=== PATIENT | male | born 1970 | race African-American/Black ===

== ENCOUNTER 2023-11-26 07:38 | Day surgery (SDC) | payer BC ==
[2023-11-21 17:50] VITALS: BMI 22.4
[2023-11-26] MEDS ORDERED: PROPOFOL 80 ML ONE (08:49)
[2023-11-26 09:49] VITALS: PULSE 66; TEMP 97.5
[2023-11-26 09:56] VITALS: BP 103/50; RESP 16
== END 2023-11-26 09:45 | disposition home or self-care (01) ==
LOC: FASU-ENDO 07:38
PROVIDERS: ATTEND Internal Medicine Gastroenterology
PROC: 0DJD8ZZ Inspection of Lower Intestinal Tract, Via Natural or Artificial Opening Endoscopic (ICD-10-PCS; principal; 2023-11-26 08:56)
DX: Z12.11 Encounter for screening for malignant neoplasm of colon (principal)

== ENCOUNTER 2025-01-29 20:13 | Emergency (ER) | payer BC ==
[2025-01-29 20:20] VITALS: BP 115/79; PULSE 75; RESP 16; TEMP 97.5; BMI 22.4
[2025-01-29] MEDS ORDERED: AMOX TR/POT CLAV 875MG/125MG TABLETS (FP) ONE (21:12)
[2025-01-29] MEDS: AMOX TR/POT CLAV 875MG/125MG TABLETS (FP) PO ONE (21:13)
== END 2025-01-29 21:15 | disposition home or self-care (01) ==
LOC: FER 20:13
DX: K11.20 Sialoadenitis, unspecified (principal)
CPT/HCPCS: 99283-25